=== PATIENT | male | born 1985 | race Two or more races ===

== ENCOUNTER 2016-07-22 07:53 | Emergency (ER) | payer SELFPAY ==
[2016-07-22 07:59] VITALS: BP 143/71; PULSE 61; TEMP 97.8; BMI 25.1
--- NOTE | 2016-07-22 08:14 | PDOC ---
History of Present Illness - General History Source: Patient Exam Limitations: No Limitations - History of Present Illness Initial Comments: 07/22/16 08:16 The patient is a 31-year-old man, current everyday cigarette smoker, with no past medical history who presents to the emergency department for further evaluation of chest pain for the past few days. 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 No direct trauma. He states that he has been experiencing sharp, intermittent, left sided shoulder pain with associated left sided chest pain and left arm numbness with a rated 4/10 in intensity. His pain is exacerbated with rotational movements, while at rest and driving and is alleviated when walking and working. No lightheadedness, dizziness, palpitations, visual changes, neck pain, neck stiffness. Patient also reports a non-productive cough, but attributes this to his social habits of cigarettes and marijuana smoking. No noted hempotysis. No shortness of breath , history of pneumonia, asthma and lung disease. No other complaints. He denies fever, chills, diaphoresis. He denies jaw/ back pain lower extremity pain/swelling, calf tenderness/pain He denies recent travel, recent surgery, recent immobilization. Allergies: No Known Drug Allergies Past Surgical History: None reported Social History: Works as a lead tank mechanic. Current everyday cigarette smoker ( approximately 3-4/day). No ETOH use. Marijuana and cocaine use. Last cocaine use was reportedly approximately 1 month ago. Primary Care Physician: N/A <Natali Salazar - Last Filed: 07/22/16 09:26> <Cricket Lynch - Last Filed: 07/22/16 10:30> - General Chief Complaint: Chest Pain Stated Complaint: CHEST PAIN Time Seen by Provider: 07/22/16 08:14 Past History <Natali Salazar - Last Filed: 07/22/16 09:26> - Past Medical History Other medical history: denies medical hx - Psycho/Social/Smoking Cessation Hx Suicidal Ideation: No Smoking History: Current every day smoker Number of Cigarettes Smoked Daily: 4 Information on smoking cessation initiated: No Hx Alcohol Use: No Drug/Substance Use Hx: Yes Substance Use Type: Marijuana <Crikcet Lynch - Last Filed: 07/22/16 10:30> - Past Medical History Allergies/Adverse Reactions: Allergies Allergy/AdvReac Type Severity Reaction Status Date / Time No Known Allergies Allergy Verified 07/22/16 07:59 Home Medications: Ambulatory Orders NK [No Known Home Medication] 07/22/16 Review of Systems - Review of Systems Constitutional: No: Chills, Fever Respiratory: No: Cough, Shortness of Breath Cardiac (ROS): No: Chest Pain, Edema, Palpitations Musculoskeletal: Yes: Joint Pain, Muscle Pain. No: Muscle Weakness Integumentary: No: Rash Neurological: Yes: Paresthesia. No: Weakness All Other Systems: Reviewed and Negative <Cricket Lynch - Last Filed: 07/22/16 10:30> *Physical Exam - Vital Signs Last Vital Signs Temp Pulse Resp BP Pulse Ox 97.8 F 61 16 143/71 99 07/22/16 07:55 07/22/16 07:55 07/22/16 07:55 07/22/16 07:55 07/22/16 07:55 - Physical Exam Comments: 07/22/16 08:22 GENERAL: The patient is awake, alert, and fully oriented, in no acute distress. HEAD: Normal with no signs of trauma. EYES: Pupils equal, round and reactive to light, extraocular movements intact, sclera anicteric, conjunctiva clear with no pallor. ENT: Ears normal, nares patent, oropharynx clear without exudates. Moist mucous membranes. NECK: Normal range of motion, supple without lymphadenopathy, JVD, or masses. LUNGS: Breath sounds equal, clear to auscultation bilaterally. No wheeze/ crackles. HEART: Regular rate and rhythm, normal S1 and S2 without murmur or rub. ABDOMEN: Soft/nontender/nondistended. BS wnl. No guarding or rebound. No palpable masses. No hepatosplenomegaly. MUSCULOSKELETAL: There is no reproducible tenderness or swelling over the left upper extremity. There is full range of motion. Neurovascularly intact. EXTREMITIES: Normal range of motion, no edema. No clubbing or cyanosis. No cords, erythema, or tenderness. NEUROLOGICAL: Cranial nerves II through XII grossly intact. Normal speech, normal gait. PSYCH: Normal mood, normal affect. SKIN: Warm, Dry, normal turgor, no rashes or lesions noted. <Natali Salazar - Last Filed: 07/22/16 09:26> - Vital Signs Last Vital Signs Temp Pulse Resp BP Pulse Ox 97.8 F 61 16 143/71 99 07/22/16 07:55 07/22/16 07:55 07/22/16 07:55 07/22/16 07:55 07/22/16 07:55 <MerarylimaCricket - Last Filed: 07/22/16 10:30> Heart Score/ECG Review #1 ECG reviewed & interpreted by me at: 08:05 General ECG Interpretation: Sinus Rhythm, Normal Rate (54), Normal Intervals ( IRBBB), No acute ischemic changes <DavidgabriellimaCricket - Last Filed: 07/22/16 10:30> ED Treatment Course - RADIOLOGY Radiograph Interpretation: 07/22/16 09:26 EXAM: RAD/CHEST PA LAT IMPRESSION: Clinical information: Left chest discomfort. Chest x ray, PA and Lateral Comparison: No prior is available for comparison The cardiac silhouette is within normal limits in size. There is a 5 mm pulmonary nodule in the left mid to lower lung, laterally. The rest of the lung is clear. Mediastinum and visualized osseous structures appear grossly intact . <Natali Saalzar - Last Filed: 07/22/16 09:26> Medical Decision Making - Medical Decision Making 07/22/16 08:36 A portion of this note was documented by scribe services under my direction. I have reviewed the details of the note, within reason, and agree with the documentation with the following case summary and management plan written by me. Healthy 31-year-old male presents for evaluation of left upper chest and left shoulder/arm discomfort for the last 2 days. Works as a lead tank mechanic, does not recall any direct strain or trauma, reports intermittent sharp discomfort associated with paresthesias worse with rest/driving, improved with ambulating and working. Did not take anything for pain, denies any cardiac pulmonary complaints, no PE or ACS risk factors. Last cocaine use was one month ago, smokes marijuana and cigarettes. No infectious complaints. Vitals as noted and normal. Exam as noted and normal with some musculoskeletal reproducibility. 31-year-old male without ACS or PE risk factors presents with likely musculoskeletal left upper chest/shoulder pain, unstable rotator cuff injury, low suspicion for cardiac or pulmonary etiology. EKG is nonischemic Check chest x-ray Trial of ibuprofen Dispo accordingly with orthopedics follow-up 07/22/16 10:27 Chest x-ray shows nonspecific 5 mm left mid/lower lung field granuloma, given patient is a smoker will follow-up for repeat imaging as outpatient. Symptoms resolved after ibuprofen. Feels well, agrees with discharge plan. Understands return criteria. <rCicket Lynch - Last Filed: 07/22/16 10:30> *DC/Admit/Observation/Transfer - Attestations Scribe Attestion: 07/22/16 08:22 Documentation prepared by Natali Salazar, acting as neuropsychology medical consultant for Cricket Lynch MD. <Natali Salazar - Last Filed: 07/22/16 09:26> <Cricket Lynch - Last Filed: 07/22/16 10:30> Diagnosis at time of Disposition: Atypical chest pain Left shoulder strain Qualifiers: Encounter type: initial encounter Qualified Code(s): S46.912A - Strain of unspecified muscle, fascia and tendon at shoulder and upper arm level, left arm , initial encounter - Discharge Dispostion Disposition: HOME Condition at time of disposition: Improved - Referrals Referrals: Yash Morrissey MD [Staff Physician] - Josh Richard MD [Staff Physician] - - Patient Instructions Printed Discharge Instructions: DI for Atypical Chest Pain, DI for Shoulder Sprain Additional Instructions: Activity as tolerated. Stay hydrated. Tylenol 1000 mg every 8 hours and/or ibuprofen 600 mg every 8 hours as needed for pain. An EKG and a chest x-ray showed no acute abnormalities. The chest x-ray did have a nonspecific 6 mm nodule on the left side, so follow-up imaging is necessary as discussed. You should follow up with a primary doctor (consider calling Dr. Morrissey for an appointment) as soon as possible regarding today's emergency department visit. If symptoms persist, consider seeing an orthopedic for outpatient MRI of the left shoulder. Return to the emergency department for any new or concerning symptoms, particularly persistent or worsening pain, severe swelling, chest pain or difficulty breathing.
[2016-07-22] MEDS ORDERED: IBUPROFEN 600 MG TABLET (FP) PO ONE ×2 (08:30→08:52)
--- NOTE | 2016-07-22 13:29 | EKG ---
Test Reason : Blood Pressure : / mmHG Vent. Rate : 054 BPM Atrial Rate : 054 BPM P-R Int : 168 ms QRS Dur : 106 ms QT Int : 392 ms P-R-T Axes : 037 049 019 degrees QTc Int : 371 ms SINUS BRADYCARDIA WITH SINUS ARRHYTHMIA INCOMPLETE RIGHT BUNDLE BRANCH BLOCK BORDERLINE ECG NO PREVIOUS ECGS AVAILABLE Confirmed by LILLY MCDONOUGH MD ([id number]) on 07/22/2016 1:29:20 PM Referred By: Confirmed By:LILLY MCDONOUGH MD
== END 2016-07-22 10:52 | disposition home or self-care (01) ==
LOC: JER 07:53
DX: S46.912A Strain of unspecified muscle, fascia and tendon at shoulder and upper arm level, left arm, initial encounter (principal); X58.XXXA Exposure to other specified factors, initial encounter; Y93.9 Activity, unspecified; Y92.9 Unspecified place or not applicable
CPT/HCPCS: 71020-TC; 93005; 93010; 99282-25